=== PATIENT | female | born 1950 | race Two or more races ===

== ENCOUNTER 2021-03-02 12:00 | Outpatient (CLI) | payer OTHER | END 2021-03-02 12:30 | disposition home or self-care (01) | LOC: PPH VACUNA 12:00 | PROVIDERS: ATTEND Emergency Medicine Pediatric Emergency Medicine | DX: Z23 Encounter for immunization (principal) ==

== ENCOUNTER 2022-01-29 10:07 | Outpatient (CLI) | payer OTHER | END 2022-01-29 10:17 | disposition home or self-care (01) | LOC: PPH VACUNA 10:07 | PROVIDERS: ATTEND Emergency Medicine Pediatric Emergency Medicine | DX: Z23 Encounter for immunization (principal) ==